=== PATIENT | female | born 1970 | race Caucasian/White ===

== ENCOUNTER 2017-06-07 09:11 | Emergency (ER) | payer OTHER ==
[~2017-06-07] VITALS: Ht 162.6 cm; Wt 71.7 kg
[~2017-06-07 09:11] MED LIST: AMOXICILLIN875 MG PO; PHENERGAN12.5 M1 RE; ULTRAM 50MG TAB50 MG PO; ZITHROMAX500 MG PO
[2017-06-07] MEDS ORDERED: NORCO 5-325 TA1 EACH PO (09:48)
[2017-06-07 10:00] VITALS: BP 128/74
== END 2017-06-07 10:14 | disposition home or self-care (01) ==
LOC: M.ERS 09:11
DX: S52.502A Unspecified fracture of the lower end of left radius, initial encounter for closed fracture (principal); S52.612A Displaced fracture of left ulna styloid process, initial encounter for closed fracture; F17.210 Nicotine dependence, cigarettes, uncomplicated; Z88.6 Allergy status to analgesic agent; W01.0XXA Fall on same level from slipping, tripping and stumbling without subsequent striking against object, initial encounter; Y93.89 Activity, other specified; Y92.89 Other specified places as the place of occurrence of the external cause; Y99.8 Other external cause status

== ENCOUNTER 2019-04-15 09:16 | Emergency (ER) | payer OTHER ==
[~2019-04-15] VITALS: Ht 162.6 cm; Wt 63.5 kg
[~2019-04-15 09:16] MED LIST changes: +NORCO 5-325 TA1 EACH PO
[2019-04-15] MEDS ORDERED: BACTRIM DS TAB1 EAC1 PO (09:42)
[2019-04-15 09:53] VITALS: BP 110/70
== END 2019-04-15 09:54 | disposition home or self-care (01) ==
LOC: M.ERS 09:16
DX: L03.115 Cellulitis of right lower limb (principal); F17.210 Nicotine dependence, cigarettes, uncomplicated; Z88.5 Allergy status to narcotic agent